=== PATIENT | female | born 1975 | race Two or more races ===

== ENCOUNTER 2018-02-28 22:19 | Emergency (ER) | payer SELFPAY ==
[~2018-02-28] VITALS: Ht 154.9 cm; Wt 81.6 kg
[2018-02-28] MEDS ORDERED: cloNIDine HCL 0.1 MG TAB PO ONE (22:45)
[2018-02-28 23:22] LABS: Basophils # (auto) 0 uL; Basophils % (auto) 0.5 % (0.0-2.0); Eosinophils # (auto) 0.3 uL; Eosinophils % (auto) 3.6 % (0.0-7.0); Hematocrit 39.8 % (36.0-46.0); Hemoglobin 13.1 g/dL (12.2-16.2); Lymphocytes # (auto) 4.1 uL; Lymphocytes % (auto) 44.8 % (10.0-50.0); Mean Corpuscular Hemoglobin 28.1 pg (28.0-32.0); Mean Corpuscular Volume 85.2 fL (80.0-100.0); Monocytes # (auto) 0.5 uL; Monocytes % (auto) 5.7 % (0.0-12.0); Neutrophils # (auto) 4.2 uL; Neutrophils % (auto) 45.4 % (37.0-80.0); Nucleated Red Blood Cells % 0.1 %; Platelet Count (auto) 321 10^3/uL (140-450); Red Blood Cells 4.67 10^6/uL (4.0-5.20); Red Cell Distribution Width 13.5 % (11.8-14.3); White Blood Cell 9.1 10^3/uL (4.4-10.8)
[2018-02-28 23:24] LABS: Alanine Aminotransferase 45 U/L (13-56); Albumin 4.1 g/dL (3.4-5.0); Anion Gap 7 (5-15); Blood Urea Nitrogen 15 mg/dL (7-18); Calcium 8.6 mg/dL (8.5-10.1); Carbon Dioxide 27 mmol/L (21-32); Chloride 106 mmol/L (98-107); Glucose 101 mg/dL (74-106); Magnesium 2.2 mg/dL (1.6-2.6); Potassium 3.9 mmol/L (3.5-5.1); Sodium 140 mmol/L (136-145)
[2018-02-28 23:29] LABS: Alkaline Phosphatase 124 U/L (45-117); Aspartate Aminotransferase 32 U/L (15-37); Bilirubin, Total 0.4 mg/dL (0.2-1.0); GFR African American 72 mL/min; GFR Non-African American 59 mL/min; Total Protein 8.1 g/dL (6.4-8.2)
[2018-02-28 23:38] LABS: Urine Bacteria MANY /hpf (None Seen); Urine Blood Negative /uL (Negative); Urine Specific Gravity 1.004 (1.001-1.035); Urine WBC 3 /hpf (0 - 5)
[2018-02-28 23:57] LABS: INR 0.88 (0.9-1.15); Partial Thromboplastin Time 26.1 sec (23.78-33.04); Prothrombin Time 9.5 sec (9.27-12.13)
[2018-03-01 05:18] VITALS: BP 109/70
== END 2018-03-01 05:40 | disposition home or self-care (01) ==
LOC: ER 22:19
DX: I10 Essential (primary) hypertension (principal); R51 Headache; N39.0 Urinary tract infection, site not specified; J45.909 Unspecified asthma, uncomplicated; E78.5 Hyperlipidemia, unspecified
CPT/HCPCS: 36415; 70450; 71046; 80053; 81001; 81025; 83735; 83880; 84484; 85025; 85610; 85730

== ENCOUNTER 2018-09-15 19:21 | Emergency (ER) | payer MEDICAID ==
[~2018-09-15] VITALS: Ht 165.1 cm; Wt 81.6 kg
[2018-09-15 19:33] VITALS: BP 165/97
[2018-09-16] MEDS ORDERED: METHOCARBAMOL 500 MG TAB PO ONE
[2018-09-16] MEDS ORDERED: IBUPROFEN 800 MG TAB PO ONE
== END 2018-09-16 00:52 | disposition home or self-care (01) ==
LOC: EDBD 19:21 → ER 19:27
DX: S63.501A Unspecified sprain of right wrist, initial encounter (principal); J45.909 Unspecified asthma, uncomplicated; E78.5 Hyperlipidemia, unspecified; I10 Essential (primary) hypertension; R42 Dizziness and giddiness; R51 Headache; V49.59XA Passenger injured in collision with other motor vehicles in traffic accident, initial encounter; Y93.89 Activity, other specified; Y92.488 Other paved roadways as the place of occurrence of the external cause; Y99.8 Other external cause status
CPT/HCPCS: 73110; 93005